=== PATIENT | male | born 2000 | race Two or more races ===

== ENCOUNTER 2022-08-17 19:01 | Emergency (ER) | payer BC ==
[2022-08-17] MEDS ORDERED: Lidocaine 1% (PF) 30 ML VIAL ONE (19:43)
== END 2022-08-17 20:48 | disposition home or self-care (01) ==
LOC: CSHERS 19:01
DX: S01.112A Laceration without foreign body of left eyelid and periocular area, initial encounter (principal); F17.210 Nicotine dependence, cigarettes, uncomplicated; W21.11XA Struck by baseball bat, initial encounter
CPT/HCPCS: 12013; J2001